=== PATIENT | female | born 1990 | race Caucasian/White ===

== ENCOUNTER 2020-10-03 17:12 | Outpatient (CLI) | payer OTHER ==
[~2020-10-03] VITALS: Ht 162.6 cm; Wt 79.5 kg
--- NOTE | 2020-10-03 17:25 | NUR ---
Patient ambulatory to LR2 with spouse, changed into gown, FHR/TOCO monitors placed and explained. Patient denies any regular contractions/leaking of fluid/vaginal bleeding/decreased movement. Plan of care discussed and questions answered. 1740: IV placed per C.[facility] [employer] and blood obtained. Flushed and patient tolerates well. Assessment completed and consent signed 1748: Dr. Kenney at bedside and and orders to give Terb. at this time. See EMAR. 1750: Dr. Kenney begins external version. FHR monitor off. 1752: Patient tolerating well. 1754: Successful version noted at this time. Patient repositioned and plan of care discussed.
[2020-10-03] MEDS ORDERED: PRENATAL TABLET PO (17:40)
[2020-10-03 17:50] VITALS: BP 119/77; PULSE 75; TEMP 98.1
[2020-10-03 18:10] VITALS: BP 116/77; PULSE 107
--- NOTE | 2020-10-03 18:15 | NUR ---
Dr Kenney on unit. FHR tracing reviewed.
--- NOTE | 2020-10-03 18:30 | NUR ---
1829- Dr. Kenney on the unit. FHR tracing reviewed. Orders for discharge home received. 1834- Discharge instructions and precautions reviewed with pt and at the bedside. Both verbalized an understanding, agreed with the plan and state no questions or concerns at this time.
[2020-10-03 18:36] VITALS: BP 124/82; PULSE 88
== END 2020-10-03 18:40 | disposition home or self-care (01) ==
LOC: LDRO 17:12 → LDR 17:20 → LDRO 18:40
DX: O32.1XX0 Maternal care for breech presentation, not applicable or unspecified (principal); Z3A.01 Less than 8 weeks gestation of pregnancy
CPT/HCPCS: OP; J3105